=== PATIENT | female | born 1990 | race Caucasian/White ===

== ENCOUNTER 2016-11-21 23:39 | Observation (INO) | payer MEDICAID, OTHER ==
[~2016-11-21] VITALS: Ht 152.4 cm; Wt 81.6 kg
[2016-11-22 01:26] LABS: CLARITY URINE CLEAR (CLEAR); COLOR URINE YELLOW (YELLOW); GLUCOSE URINE NEGATIVE (NEGATIVE); KETONES URINE NEGATIVE (NEGATIVE); LEUKOCYTE ESTERASE URINE NEGATIVE (NEGATIVE); NITRITE URINE NEGATIVE (NEGATIVE); OCCULT BLOOD URINE TRACE (NEGATIVE); PROTEIN URINE NEGATIVE (NEGATIVE); SPECIFIC GRAVITY URINE 1.004 (1.005-1.030); UROBILINOGEN URINE 0.2 E.U./dL (0.2-1.0)
[2016-11-22] MEDS ORDERED: LACTATED RINGERS 1,000 ML IV SCH (01:30)
[2016-11-22] MEDS ORDERED: ACETAMINOPHEN 500MG TABLET PO NR (01:30)
[2016-11-22] MEDS ORDERED: TERBUTALINE SULFATE 1MG/ML VIAL SUBCUT PRN (01:45)
[2016-11-22] MEDS ORDERED: FERR-63 PO (03:00)
[2016-11-22] MEDS ORDERED: SYN200 PO (03:00)
[2016-11-22] MEDS ORDERED: PREN-88 PO (03:00)
[2016-11-22] MEDS ORDERED: FOLI-43 PO (03:00)
== END 2016-11-22 09:15 | disposition home or self-care (01) ==
LOC: L&D 23:39
PROVIDERS: ADMIT Obstetrics & Gynecology; ATTEND Obstetrics & Gynecology
DX: O26.893 Other specified pregnancy related conditions, third trimester (principal); R10.31 Right lower quadrant pain; R35.0 Frequency of micturition; R30.0 Dysuria; O99.283 Endocrine, nutritional and metabolic diseases complicating pregnancy, third trimester; E03.9 Hypothyroidism, unspecified; Z3A.36 36 weeks gestation of pregnancy
CPT/HCPCS: 76770; 81001; 96360; 96361; 96372; 99281; G0378; J3105; J7120

== ENCOUNTER 2016-11-27 20:51 | Observation (INO) | payer OTHER ==
[~2016-11-27] VITALS: Ht 152.4 cm; Wt 81.6 kg
[~2016-11-27 20:51] MED LIST: FERR-63 PO; FOLI-43 PO; PREN-88 PO; SYN200 PO
== END 2016-11-27 22:14 | disposition home or self-care (01) ==
LOC: L&D 20:51
PROVIDERS: ADMIT Specialist; ATTEND Specialist
DX: O42.92 Full-term premature rupture of membranes, unspecified as to length of time between rupture and onset of labor (principal); Z3A.37 37 weeks gestation of pregnancy
CPT/HCPCS: G0378

== ENCOUNTER 2016-11-28 13:37 | Observation (INO) | payer OTHER ==
[~2016-11-28] VITALS: Ht 152.4 cm; Wt 81.6 kg
== END 2016-11-28 16:05 | disposition home or self-care (01) ==
LOC: L&D 13:37
PROVIDERS: ADMIT Obstetrics & Gynecology; ATTEND Obstetrics & Gynecology
DX: O26.893 Other specified pregnancy related conditions, third trimester (principal); N89.8 Other specified noninflammatory disorders of vagina; O99.283 Endocrine, nutritional and metabolic diseases complicating pregnancy, third trimester; E03.9 Hypothyroidism, unspecified; Z3A.37 37 weeks gestation of pregnancy
CPT/HCPCS: 76815; 76818; G0378

== ENCOUNTER 2016-11-29 23:52 | Observation (INO) | payer OTHER ==
[~2016-11-29] VITALS: Ht 152.4 cm; Wt 81.6 kg
[2016-11-30] MEDS ORDERED: LACTATED RINGERS 1,000 ML IV SCH (00:52)
[2016-11-30] MEDS ORDERED: ONDANSETRON HCL 4MG/2ML VIAL IV NR (01:00)
[2016-11-30 01:47] LABS: CHLORIDE 109 mEq/L (98-107)
[2016-11-30 01:49] LABS: BASOPHILS % 0.4 % (0.0-2.0); EOSINOPHILS % 0.4 % (0.0-5.0); HEMATOCRIT. 29.1 % (36.0-48.0); HEMOGLOBIN. 9.8 g/dL (12.0-16.0); LYMPHOCYTES % 29.3 % (20.0-50.0); MEAN CORPUSCULAR VOLUME 89.5 fL (81.0-99.0); MEAN PLATELET VOLUME 10.6 fl (7.4-10.4); MONOCYTES % 9.6 % (2.0-8.0); NEUTROPHILS % 60.3 % (40.0-76.0); PLATELET 162 x1000/uL (130-400); RED BLOOD CELL COUNT 3.25 mill/uL (4.2-5.4); RED CELL DISTRIBUTION WIDTH 15.6 % (11.6-14.6)
[2016-11-30 01:52] LABS: CLARITY URINE CLEAR (CLEAR); COLOR URINE YELLOW (YELLOW); GLUCOSE URINE NEGATIVE (NEGATIVE); KETONES URINE NEGATIVE (NEGATIVE); LEUKOCYTE ESTERASE URINE NEGATIVE (NEGATIVE); NITRITE URINE NEGATIVE (NEGATIVE); OCCULT BLOOD URINE NEGATIVE (NEGATIVE); PROTEIN URINE NEGATIVE (NEGATIVE); SPECIFIC GRAVITY URINE 1.008 (1.005-1.030); UROBILINOGEN URINE 0.2 E.U./dL (0.2-1.0)
[2016-11-30 01:55] LABS: CARBON DIOXIDE 21 mEq/L (21-32)
[2016-11-30] MEDS ORDERED: ACETAMINOPHEN 500MG TABLET PO NR (02:30)
== END 2016-11-30 03:41 | disposition home or self-care (01) ==
LOC: L&D 23:52
PROVIDERS: ADMIT Obstetrics & Gynecology; ATTEND Obstetrics & Gynecology
DX: O26.893 Other specified pregnancy related conditions, third trimester (principal); R10.9 Unspecified abdominal pain; Z3A.37 37 weeks gestation of pregnancy
CPT/HCPCS: 36415; 80053; 81003; 85025; 96361; 96374; G0378; J2405; 96360; 99281